=== PATIENT | female | born 1995 | race Hispanic/Latino ===

== ENCOUNTER 2020-12-30 09:56 | Inpatient (IN) | payer MEDICAID ==
[~2020-12-30 09:56] MED LIST: MIDAZOLAM 2 MG/2 ML INJ IV NR; SCOPOLAMINE TRANSDERMAL PATCH 72 HR TD NR
[2020-12-30] MEDS: LACTATED RINGERS 1,000 ML IV SCH ×2 (10:35→15:00)
[2020-12-30 10:47] LABS: Hematocrit 27.1 % (30.3-42.9); Mean Corpuscular HGB Conc 33 % (30-34); Mean Corpuscular Volume 93 fl (79-97); Platelet Count 272 K/mm3 (140-440); Red Blood Count 2.92 M/mm3 (3.65-5.03); Red Cell Distribution Width 13.6 % (13.2-15.2)
--- NOTE | 2020-12-30 10:49 | Anesthesia Consultation ---
Anesthesia Consult and Med Hx Date of service: 12/30/20 - Airway Anesthetic Teeth Evaluation: Good ROM Head & Neck: Adequate Mental/Hyoid Distance: Adequate Mallampati Class: Class II Intubation Access Assessment: Probably Good - Pulmonary Exam CTA: Yes - Cardiac Exam Cardiac Exam: RRR (tachycardic) - Pre-Operative Health Status ASA Pre-Surgery Classification: ASA3 Proposed Anesthetic Plan: General - Pulmonary Hx Smoking: No Hx Respiratory Symptoms: No Hx Sleep Apnea: No (RJ PRE SCREEN LOW RISK) - Cardiovascular System Hx Hypertension: Yes (gHTN; resolved since delivery) Hx Heart Attack/AMI: No Hx Cardia Arrhythmia: No - Central Nervous System CVA: No - Gastrointestinal Hx Gastroesophageal Reflux Disease: No - Endocrine Hx Renal Disease: Yes (cystinuria) Hx Liver Disease: No Hx Insulin Dependent Diabetes: No Hx Non-Insulin Dependent Diabetes: No Hx Thyroid Disease: No - Other Systems Hx Obesity: Yes (BMI 32) - Additional Comments Anesthesia Medical History Comments: Patient scheduled for cystoscopy 2/2 kidney stones today however she developed adominal pain and fever yesterday. Overnight, she was instructed to go to the ED for evaluation of symptoms however she elected not to go to the ED since surgery was already scheduled. Surgeon was notified and agreed to assess the patient in preop. On arrival, she is noted to be febrile and tachycardic, normotensive, complaining of pain. No respiratory symptoms and recent negative COVID test on 12/24/20. Will give IVF bolus and analgesic in preop and proceed with GA for planned procedure pending surgeon evaluation. Reports hx PONV w/ prior GA.
--- NOTE | 2020-12-30 10:49 | Anesthesia Day of Surgery ---
Anesthesia Day of Surgery - Day of Surgery Patient Examined: Yes Patient H&P Reviewed: Yes Patient is NPO: Yes
[2020-12-30] MEDS ORDERED: MORPHINE 2 MG/1 ML INJ IV PRN (11:00)
[2020-12-30] MEDS ORDERED: propofoL 200 MG/20 ML VIAL IV ONE ×3 (11:44→12:35)
[2020-12-30] MEDS ORDERED: fentaNYL 100 MCG/2 ML INJ ONE (11:44)
[2020-12-30] MEDS ORDERED: LIDOCAINE MPF (2%) 20 MG/1 ML VIAL 5 ML ONE (11:45)
--- NOTE | 2020-12-30 11:58 | Cat Scan Report ---
CT ABDOMEN AND PELVIS WITHOUT CONTRAST HISTORY: Flank pain. COMPARISON: None. TECHNIQUE: Helical CT images of the abdomen and pelvis were obtained without administration of intrav enous contrast. Sagittal and coronal reformatted images were reviewed. All CT scans at this location are performed using CT dose reduction for ALARA by means of automated exposure control. FINDINGS: Abdomen/pelvis: A 7.7 mm distal left ureteral stone is identified approximately 5 cm from the left U VJ. There is moderate upstream left hydronephrosis. A 5 mm calyceal stone is identified in the inferi or left kidney. There are or calyceal stones scattered in the right kidney measuring between 1-4 mm. No right ureteral stones or hydronephrosis. The uterus is enlarged measuring up to 18 cm in length on the sagittal images. This may represent a r ecent uterus. Please correlate with the patient's history. There is a large amount of hemo rrhagic products in the lower uterine segment and cervical canal measuring up to 6.7 x 7.5 x 7.0 cm. The endometrium appears slightly complex and thickened measuring 1.7 cm. The adnexal regions are unre markable. The bladder is partially empty but unremarkable. The liver, biliary system, pancreas, spleen, adrenal glands, aorta and bowel loops are unremarkable. Lungs/bones: No significant abnormality. IMPRESSION: Bilateral renal calyceal stones as described. 7.7 mm mid to distal left ureteral stone resulting in m oderate left hydronephrosis. Enlarged uterus. I suspect this patient is , correlate with history. Moderate to large hemo rrhagic products are identified in the lower uterine segment and cervical canal. Pelvic exam and cons ultation with BRAND REPRESENTATIVE should be considered. Signer Name: Flynn Cesar Jr, MD Signed: 12/30/2020 11:54 AM Workstation Name: [id number]
[2020-12-30] MEDS ORDERED: ceFAZolin/STERILE WATER 2 GM/20 ML SYRINGE IV NR (12:00)
[2020-12-30] MEDS ORDERED: dexAMETHasone 20 MG/5 ML VIAL ONE (12:29)
[2020-12-30] MEDS ORDERED: ONDANSETRON 4 MG/2 ML INJ ONE (12:29)
[2020-12-30] MEDS ORDERED: KETOROLAC 30 MG/1 ML INJ ONE (12:47)
--- NOTE | 2020-12-30 12:58 | Post Operative Note ---
Date of procedure: 12/30/20 Pre-op diagnosis: l ureteral stone post fever Post-op diagnosis: same Findings: large stone Procedure: cysto rpg L j stent Anesthesia: GETA Surgeon: VINOD GRIDER Estimated blood loss: none Pathology: list (urine LK) Specimen disposition: to lab Condition: stable Disposition: PACU
--- NOTE | 2020-12-30 13:00 | Discharge Summary ---
Short Stay Discharge Plan Activity: other (no straing ) Weight Bearing Status: Full Weight Bearing Diet: regular, low fat Durable Medical Equipment Needed Upon Discharge: other (no straining ) Follow up with: EUGENIO VALDIVIA [Other] - 7 Days VINOD GRIDER MD [Staff Physician] - 7 Days
[2020-12-30] MEDS ORDERED: LIDOCAINE-MPF (1%) 10 MG/1 ML VIAL 5 ML INFILTRATI ONE (13:10)
--- NOTE | 2020-12-30 13:15 | Fluoroscopy Report ---
FLUOROSCOPY RETROGRADE UROGRAPHY HISTORY: FINDINGS: Fluoroscopy was provided by radiology during retrograde urography by the urologist. The pepito ges demonstrate contrast injection into the left renal collecting system. A 7-8mm filling defect in t he mid to distal left ureter is identified consistent with a stone. Subsequent images demonstrate manda cement of a left ureteral stent which is in good position on the final image with decreased left hydr onephrosis. No images of the right renal collecting system are presented. IMPRESSION: Left ureteral stone. Left ureteral stent placement. Fluoroscopy time: 1 minute 6 seconds Fluoroscopic images: 4 Signer Name: Flynn Cesar Jr, MD Signed: 12/30/2020 1:11 PM Workstation Name: [id number]
--- NOTE | 2020-12-30 13:16 | Operative Report ---
PREOPERATIVE DIAGNOSES: Left hydronephrosis, left ureteral stone, . POSTOPERATIVE DIAGNOSES: Left hydronephrosis, left ureteral stone, with a uterine hemorrhage and severe obstruction, left ureteral stone. PROCEDURE: Cystoscopy, left retrograde, left J stent. SURGEON: Dr. Gonsalez. ANESTHESIA: General. FINDINGS: This is a woman who had severe pain and today developed a fever of over 102. She had a CT scan showed an 8 mm distal stone at the vessels and hydronephrosis. She also had uterine hemorrhage. She now presents for treatment. DESCRIPTION OF PROCEDURE: The patient was brought to the operating room and placed on the operating table. Following induction of anesthesia, placed in lithotomy position, prepped and draped in usual sterile fashion. Cystourethroscopy showed some inflammatory changes at the base of the bladder, likely from some manipulation and the catheter from her recent delivery. Retrograde showed severe obstruction, left distal ureter and eventually and we were able to get a wire by the stone. We collected the urine from the left renal pelvis for culture, which did not look that purulent, but just a little cloudy. We then placed a 7-Sami double J in the kidney and bladder and a Boone catheter. The patient tolerated the procedure well. I spoke to Dr. Avila who may admit her for 24 hours and the OB on-call to evaluate her. At this point, she will have to come back for a second stage ureteroscopy or lithotripsy. JOB# [id number] TREVOR/MAVERICK
[2020-12-30] MEDS ORDERED: WATER FOR IRRIG STERILE 2000 ML IR ONE (13:19)
[2020-12-30] MEDS ORDERED: IOHEXOL 300 MG/ML 50ML IV ONE (13:19)
--- NOTE | 2020-12-30 13:22 | Consultation ---
History of Present Illness Consult date: 12/30/20 History of present illness: Is a 25-year-old who is status post a vaginal delivery 5 days ago at another hospital. I was asked to consult on this patient for her temperature of 102. Patient had a stent placed for hydronephrosis by urology today. Patient denies any low midline abdominal pain. Patient also denies any breast pain. No vag d/c and no heavy VB noted. Medications and Allergies Allergies Allergy/AdvReac Type Severity Reaction Status Date / Time hydromorphone [From Dilaudid] Allergy Itching Verified 12/28/20 12:29 levofloxacin [From Levaquin] Allergy Itching Verified 12/28/20 12:29 Home Medications Medication Instructions Recorded Confirmed Last Taken Type Acetaminophen [Tylenol] 500 mg PO PRN PRN 12/28/20 12/30/20 12/29/20 20:00 History Docusate Sodium [Colace] 100 mg PO DAILY 12/28/20 12/30/20 12/29/20 09:00 History Ibuprofen [Motrin] 800 mg PO Q8HR PRN 12/28/20 12/30/20 12/27/20 12:00 History Pnv,Calcium 72/Iron,Carb/Folic 1 each PO DAILY 12/28/20 12/30/20 12/29/20 09:00 History [ Plus Iron Tablet] Hydrocodone-Acetamin 5-300 mg 5 mg PO Q6HR 12/30/20 12/30/20 12/30/20 04:30 History Active Meds: Active Medications Cefazolin Sodium (Cefazolin/Sterile Water 2 Gm/20 Ml Syringe) 2 gm IV PREOP NR Stop: 12/30/20 20:00 Ceftriaxone Sodium (Ceftriaxone 500 Mg Inj) 500 mg IV ONCE ONE; Protocol Stop: 12/30/20 13:11 Lactated Ringer's (Lactated Ringers) 1,000 mls @ 100 mls/hr IV DIRECT СВЕТЛАНА Stop: 12/30/20 23:59 Last Admin: 12/30/20 10:35 Dose: 100 mls/hr Documented by: Gentamicin Sulfate 80 mg/ (Sodium Chloride) 102 mls @ 200 mls/hr IV ONCE ONE; Protocol Stop: 12/30/20 14:00 Ceftriaxone Sodium 500 mg/ (Sodium Chloride) 50 mls @ 100 mls/hr IV ONCE СВЕТЛАНА Stop: 12/30/20 23:00 Midazolam HCl (Midazolam 2 Mg/2 Ml Inj) 2 mg IV PREOP NR Stop: 12/30/20 23:00 Last Admin: 12/30/20 12:19 Dose: 2 mg Documented by: Morphine Sulfate (Morphine 2 Mg/1 Ml Inj) 2 mg IV PRN PRN PRN Reason: Pain , Severe (7-10) Stop: 12/30/20 16:00 Last Admin: 12/30/20 10:51 Dose: 2 mg Documented by: Scopolamine (Scopolamine Transdermal Patch 72 Hr) 1 each TD PREOP NR Stop: 12/30/20 23:00 Last Admin: 12/30/20 10:30 Dose: 1 each Documented by: Review of Systems All systems: negative - Vital Signs Vital signs: Vital Signs Temp Pulse Resp BP Pulse Ox 100.0 F H 137 H 22 110/63 97 12/30/20 10:15 12/30/20 10:15 12/30/20 10:15 12/30/20 10:15 12/30/20 10:15 Temp Pulse Resp BP Pulse Ox 102.2 F H 129 H 22 123/78 96 12/30/20 11:45 12/30/20 11:45 12/30/20 11:45 12/30/20 11:45 12/30/20 11:45 - Physical Exam Breasts: Positive: normal (no erythema or tend. No evidence of mastitis or abscess) Abdomen: Positive: normal appearance, soft. Negative: tenderness (uterus firm, nontender.) Results Result Diagrams: 12/30/20 10:30 Abnormal lab results 12/30/20 Range/Units 10:30 WBC 22.2 H (4.5-11.0) K/mm3 RBC 2.92 L (3.65-5.03) M/mm3 Hgb 9.0 L (10.1-14.3) gm/dl Hct 27.1 L (30.3-42.9) % All other labs normal. Assessment and Plan - Patient Problems (1) Fever Current Visit: Yes Status: Acute Plan to address problem: Based on exam, do not suspect a DESKIDDING MACHINE OPERATOR origin to her fever. CT showed blood products in the uterus but that is a common finding 5 days after delivery. More importantly, her uterus in nontender. With any questions, feel free to call [employer] SERV[employer] DESK TECHNICIAN police communications operator.
[2020-12-30] MEDS ORDERED: GENTAMICIN 80 MG in SODIUM CHLORIDE 0.9% 100 ML IV ONE (13:30)
--- NOTE | 2020-12-30 13:57 | History and Physical Report ---
Medications and Allergies Allergies Allergy/AdvReac Type Severity Reaction Status Date / Time hydromorphone [From Dilaudid] Allergy Itching Verified 12/28/20 12:29 levofloxacin [From Levaquin] Allergy Itching Verified 12/28/20 12:29 Home Medications Medication Instructions Recorded Confirmed Last Taken Type Acetaminophen [Tylenol] 500 mg PO PRN PRN 12/28/20 12/30/20 12/29/20 20:00 History Docusate Sodium [Colace] 100 mg PO DAILY 12/28/20 12/30/20 12/29/20 09:00 History Ibuprofen [Motrin] 800 mg PO Q8HR PRN 12/28/20 12/30/20 12/27/20 12:00 History Pnv,Calcium 72/Iron,Carb/Folic 1 each PO DAILY 12/28/20 12/30/20 12/29/20 09:00 History [ Plus Iron Tablet] Hydrocodone-Acetamin 5-300 mg 5 mg PO Q6HR 12/30/20 12/30/20 12/30/20 04:30 History Active Meds: Active Medications Cefazolin Sodium (Cefazolin/Sterile Water 2 Gm/20 Ml Syringe) 2 gm IV PREOP NR Stop: 12/30/20 20:00 Lactated Ringer's (Lactated Ringers) 1,000 mls @ 100 mls/hr IV DIRECT СВЕТЛАНА Stop: 12/30/20 23:59 Last Admin: 12/30/20 10:35 Dose: 100 mls/hr Documented by: Ceftriaxone Sodium 500 mg/ (Sodium Chloride) 50 mls @ 100 mls/hr IV ONCE СВЕТЛАНА Stop: 12/30/20 23:00 Gentamicin Sulfate/Sodium Chloride (Gentamicin/Ns 80 Mg/100 Ml) 100 mls @ 196.078 mls/hr IV ONCE ONE; Protocol Stop: 12/30/20 15:00 Midazolam HCl (Midazolam 2 Mg/2 Ml Inj) 2 mg IV PREOP NR Stop: 12/30/20 23:00 Last Admin: 12/30/20 12:19 Dose: 2 mg Documented by: Morphine Sulfate (Morphine 2 Mg/1 Ml Inj) 2 mg IV PRN PRN PRN Reason: Pain , Severe (7-10) Stop: 12/30/20 16:00 Last Admin: 12/30/20 10:51 Dose: 2 mg Documented by: Scopolamine (Scopolamine Transdermal Patch 72 Hr) 1 each TD PREOP NR Stop: 12/30/20 23:00 Last Admin: 12/30/20 10:30 Dose: 1 each Documented by: Exam - Constitutional Vitals: Temp Pulse Resp BP Pulse Ox 99.9 F H 120 H 21 117/62 99 12/30/20 13:00 12/30/20 13:45 12/30/20 13:45 12/30/20 13:45 12/30/20 13:45 Results - Labs CBC & Chem 7: 12/30/20 10:30 Labs: Abnormal lab results 12/30/20 Range/Units 10:30 WBC 22.2 H (4.5-11.0) K/mm3 RBC 2.92 L (3.65-5.03) M/mm3 Hgb 9.0 L (10.1-14.3) gm/dl Hct 27.1 L (30.3-42.9) %
[2020-12-30] MEDS ORDERED: HYDROmorphone 1 MG/1 ML INJ IV PRN (14:22)
[2020-12-30] MEDS ORDERED: SODIUM CHLORIDE 0.9% 1000 ML IV SOLN IV ONE (14:22)
[2020-12-30] MEDS ORDERED: ACETAMINOPHEN 325 MG TAB PO PRN (14:22)
[2020-12-30] MEDS ORDERED: ONDANSETRON 4 MG/2 ML INJ IV PRN (14:22)
[2020-12-30] MEDS ORDERED: NON-FORMULARY EACH (Acetaminophen [Tylenol] 325 MG Capsule) PO PRN (14:25)
--- NOTE | 2020-12-30 14:26 | History and Physical Report ---
History of Present Illness Chief complaint: My side hurts History of present illness: 25 YO Female with HTN, Obesity presents to preop area for surgical intervention. Patient seen and evaluated in preop. Patient reports "my side is hurting". Patient states that she has experienced bilateral flank plain over the past several days with persistently worsening symptoms over the past 2 days. Patient found to have fever to 102.2 F, a heart rate of 129 and a blood pressure of 89/49. Patient underwent preoperative CT scan of the abdomen and pelvis which revealed a left obstructing ureteral stone complicated by hydronephrosis. Patient taken to the operating room for surgical intervention. Patient initiated on sepsis protocol and admitted to surgical floor postoperatively. Patient denies fever, chills, chest pain, palpitation, productive cough, skin rash, recent ill contacts, ingestion of food/water from new or different sources, or known exposure to COVID-19. No prior admission for review. No medication listed at time of admission for reconciliation. Past History Past Medical History: other (See HPI) Past Surgical History: Other (Cystoscopy with stent stent placement) Social history: , lives with family. denies: smoking, alcohol abuse, prescription drug abuse Family history: hypertension Medications and Allergies Allergies Allergy/AdvReac Type Severity Reaction Status Date / Time hydromorphone [From Dilaudid] Allergy Itching Verified 12/28/20 12:29 levofloxacin [From Levaquin] Allergy Itching Verified 12/28/20 12:29 Home Medications Medication Instructions Recorded Confirmed Last Taken Type Acetaminophen [Tylenol] 500 mg PO PRN PRN 12/28/20 12/30/20 12/29/20 20:00 History Docusate Sodium [Colace] 100 mg PO DAILY 12/28/20 12/30/20 12/29/20 09:00 History Ibuprofen [Motrin] 800 mg PO Q8HR PRN 12/28/20 12/30/20 12/27/20 12:00 History Pnv,Calcium 72/Iron,Carb/Folic 1 each PO DAILY 12/28/20 12/30/20 12/29/20 09:00 History [ Plus Iron Tablet] Hydrocodone-Acetamin 5-300 mg 5 mg PO Q6HR 12/30/20 12/30/20 12/30/20 04:30 History Active Meds: Active Medications Acetaminophen (Acetaminophen 325 Mg Tab) 650 mg PO Q4H PRN PRN Reason: Pain MILD(1-3)/Fever >100.5/BAROLW Acetaminophen (Acetaminophen 325 Mg Tab) 650 mg PO Q6H PRN PRN Reason: Pain, Mild (1-3) Cefazolin Sodium (Cefazolin/Sterile Water 2 Gm/20 Ml Syringe) 2 gm IV PREOP NR Stop: 12/30/20 20:00 Docusate Sodium (Docusate Sodium 100 Mg Cap) 100 mg PO DAILY СВЕТЛАНА Hydromorphone HCl (Hydromorphone 1 Mg/1 Ml Inj) 0.25 mg IV Q4H PRN PRN Reason: Pain, Moderate (4-6) Lactated Ringer's (Lactated Ringers) 1,000 mls @ 100 mls/hr IV DIRECT СВЕТЛАНА Stop: 12/30/20 23:59 Last Admin: 12/30/20 10:35 Dose: 100 mls/hr Documented by: Ceftriaxone Sodium 500 mg/ (Sodium Chloride) 50 mls @ 100 mls/hr IV ONCE СВЕТЛАНА Stop: 12/30/20 23:00 Last Admin: 12/30/20 14:04 Dose: 100 mls/hr Documented by: Gentamicin Sulfate/Sodium Chloride (Gentamicin/Ns 80 Mg/100 Ml) 100 mls @ 19 6.078 mls/hr IV ONCE ONE; Protocol Stop: 12/30/20 15:00 Cefepime HCl (Cefepime/Ns 2 Gm/100 Ml) 2 gm in 100 mls @ 200 mls/hr IV Q12H СВЕТЛАНА; Protocol Midazolam HCl (Midazolam 2 Mg/2 Ml Inj) 2 mg IV PREOP NR Stop: 12/30/20 23:00 Last Admin: 12/30/20 12:19 Dose: 2 mg Documented by: Miscellaneous Medication (Acetaminophen [Tylenol]) 500 mg PO PRN PRN PRN Reason: Pain, Mild (1-3) Miscellaneous Medication (Pnv,Calcium 72/Iron,Carb/Folic [ Plus Iron Tablet]) 1 each PO DAILY СВТЕЛАНА Morphine Sulfate (Morphine 2 Mg/1 Ml Inj) 2 mg IV PRN PRN PRN Reason: Pain , Severe (7-10) Stop: 12/30/20 16:00 Last Admin: 12/30/20 10:51 Dose: 2 mg Documented by: Ondansetron HCl (Ondansetron 4 Mg/2 Ml Inj) 4 mg IV Q8H PRN PRN Reason: Nausea And Vomiting Scopolamine (Scopolamine Transdermal Patch 72 Hr) 1 each TD PREOP NR Stop: 12/30/20 23:00 Last Admin: 12/30/20 10:30 Dose: 1 each Documented by: Sodium Chloride (Sodium Chloride 0.9% 10 Ml Flush Syringe) 10 ml IV BID СВЕТЛАНА Sodium Chloride (Sodium Chloride 0.9% 10 Ml Flush Syringe) 10 ml IV PRN PRN PRN Reason: LINE FLUSH Sodium Chloride (Sodium Chloride 0.9% 1000 Ml Iv Soln) 2,590 ml 30 ml/kg (2590 ml) IV ONCE ONE Stop: 12/30/20 14:23 Review of Systems Constitutional: fever, no weight loss, no weight gain, no sweats Ears, nose, mouth and throat: no ear pain, no ear discharge, no decreased hearing, no nasal discharge Breasts: no change in shape, no swelling, no mass Cardiovascular: no chest pain, no palpitations, no rapid/irregular heart beat, no edema, no lightheadedness Respiratory: no shortness of breath Gastrointestinal: nausea, no vomiting, no diarrhea, no change in bowel habits Genitourinary Female: flank pain, no urgency, no post void dribbling, no urge incontinence, no mixed incontinence, no difficulty voiding Rectal: no pain, no incontinence, no bleeding Musculoskeletal: no shooting arm pain, no low back pain, no shooting leg pain Integumentary: no rash, no redness, no sores, no jaundice Neurological: no transient paralysis, no weakness, no numbness, no tingling Psychiatric: no anxiety, no sleep disturbances, no change in appetite, no suicidal ideation, no hallucinations Endocrine: no cold intolerance, no excessive thirst, no nocturia, no weight change Hematologic/Lymphatic: no easy bleeding Allergic/Immunologic: no anaphylaxis, no angioedema Exam - Constitutional Vitals: Temp Pulse Resp BP Pulse Ox 99.7 F H 119 H 20 119/68 99 12/30/20 14:00 12/30/20 14:00 12/30/20 14:00 12/30/20 14:00 12/30/20 14:00 General appearance: Present: mild distress - EENT Eyes: Present: PERRL ENT: hearing intact, clear oral mucosa - Neck Neck: Present: supple, normal ROM - Respiratory Respiratory effort: normal Respiratory: bilateral: CTA - Cardiovascular Rhythm: other (Tachycardia) Heart Sounds: Present: S1 & S2. Absent: rub, click - Extremities Extremities: pulses symmetrical, No edema Peripheral Pulses: abnormal (Capillary refill greater than 3.5 seconds) - Abdominal General gastrointestinal: Present: soft, non-tender, non-distended, normal bowel sounds Female genitourinary: Present: normal - Integumentary Integumentary: Present: clear, warm, dry - Musculoskeletal Musculoskeletal: gait normal, strength equal bilaterally - Psychiatric Psychiatric: appropriate mood/affect, intact judgment & insight - Neurologic Neurologic: CNII-XII intact, moves all extremities Results - Labs CBC & Chem 7: 12/30/20 10:30 Labs: Abnormal lab results 12/30/20 Range/Units 10:30 WBC 22.2 H (4.5-11.0) K/mm3 RBC 2.92 L (3.65-5.03) M/mm3 Hgb 9.0 L (10.1-14.3) gm/dl Hct 27.1 L (30.3-42.9) % Assessment and Plan - Patient Problems (1) Sepsis Current Visit: Yes Status: Acute Plan to address problem: Sepsis protocol: CBC, CMP, urinalysis, CT scan abdomen and pelvis, IV fluid resuscitation therapy, IV antibiotic therapy, monitor fluid balance, monitor urine output every shift, maintain mean arterial pressure greater than or equal to 65. Blood culture. (2) Obesity Current Visit: Yes Status: Acute Plan to address problem: Balanced diet, increase physical activity at discharge, (3) Obstructive uropathy Current Visit: Yes Status: Acute Plan to address problem: Nephrology team consulted. Patient is status post cystoscopy with left ureteral stent placement. (4) DVT prophylaxis Current Visit: Yes Status: Acute Plan to address problem: SCD to bilateral lower extremities while in bed, patient is ambulatory.
[2020-12-30] MEDS ORDERED: GENTAMICIN/NS 80 MG/100 ML 100 ML IV ONE (14:30)
--- NOTE | 2020-12-30 15:45 | Post Anesthesia Evaluation ---
- Post Anesthesia Evaluation Patient Participated: Yes Airway Patent: Yes Stable Respiratory Function: Yes Nausea/Vomiting: No Temp > 96.8F: Yes Pain Manageable: Yes Adequeate Hydration: Yes Anesthesia Complications: No Other Comments: Tachyardia significantly improved with IVF bolus. Remains normotensive. Given concern for sepsis presumably 2/2 renal stone, patient will be admitted for further management.
[2020-12-30] MEDS ORDERED: SODIUM CHLORIDE 0.9% 1000 ML 1,000 ML IV SCH ×2 (16:00)
[2020-12-30] MEDS: ACETAMINOPHEN 325 MG TAB PO PRN (21:14)
[2020-12-30] MEDS: CEFEPIME/NS 2 GM/100 ML 2 GM/100 ML BAG IV SCH (21:21)
[2020-12-31] MEDS ORDERED: MORPHINE 2 MG/1 ML INJ IM ONE (06:25)
[2020-12-31] MEDS ORDERED: traMADol 50 MG TAB PO PRN (06:28)
[2020-12-31] MEDS: DOCUSATE SODIUM 100 MG CAP PO SCH (09:50)
[2020-12-31] MEDS: PRENATAL VIT27-FE FUMARATE-FOLIC ACID VIT TAB PO SCH (09:51)
[2020-12-31] MEDS: CEFEPIME/NS 2 GM/100 ML 2 GM/100 ML BAG IV SCH ×2 (09:51→21:02)
[2020-12-31] MEDS ORDERED: [UNRECOGNIZED DRUG - OTHER] PO SCH (10:00)
[2020-12-31] MEDS ORDERED: FOLIC PO SCH (10:00)
[2020-12-31] MEDS ORDERED: PNV CALCIUM PO SCH (10:00)
[2020-12-31] MEDS ORDERED: IRON CARB PO SCH (10:00)
[2020-12-31] MEDS ORDERED: TABL PO SCH (10:00)
[2020-12-31 11:05] LABS: Hematocrit 24.7 % (30.3-42.9); Hemoglobin 8.1 gm/dl (10.1-14.3); Mean Corpuscular HGB Conc 33 % (30-34); Mean Corpuscular Volume 92 fl (79-97); Platelet Count 235 K/mm3 (140-440); Red Blood Count 2.68 M/mm3 (3.65-5.03); Red Cell Distribution Width 13.8 % (13.2-15.2)
[2020-12-31 11:18] LABS: BUN/Creatinine Ratio 12; Blood Urea Nitrogen 11 mg/dL (7-17); Calcium 7.9 mg/dL (8.4-10.2); Hemolysis Index 1
--- NOTE | 2020-12-31 12:55 | Progress Note ---
Assessment and Plan (1) Sepsis with UTI Current Visit: Yes Status: Acute Plan to address problem: Sepsis protocol: CBC, CMP, urinalysis, CT scan abdomen and pelvis, IV fluid resuscitation therapy, IV antibiotic therapy, monitor fluid balance, monitor urine output every shift, maintain mean arterial pressure greater than or equal to 65. will follow blood cx (2) Obesity Current Visit: Yes Status: Acute Plan to address problem: recommended Balanced diet, increase physical activity at discharge when clinically more stable, (3) Obstructive uropathy Current Visit: Yes Status: Acute Plan to address problem: Nephrology team consulted. Patient is status post cystoscopy with left ureteral stent placement. (4) DVT prophylaxis Current Visit: Yes Status: Acute Plan to address problem: SCD to bilateral lower extremities while in bed, patient is ambulatory. 12/31: cont iv abx, afebrile o/n. urine cx pending. lactic acid normal today. WBC at 20K. cont supportive care with medical management, follow urine culture. If clinically stable and white count trends down possible DC tomorrow Subjective Date of service: 12/31/20 Interval history: Patient seen and examined vitals noted discussed with spouse by phone - all questions answered patient c/o mild left flank pain tolerating diet, states feels much better today Objective - Constitutional Vitals: Vital Signs - 12hr 12/31/20 12/31/20 12/31/20 04:00 05:36 06:48 Temperature 98.6 F 99.6 F Pulse Rate 126 H 123 H Respiratory 20 18 18 Rate Blood Pressure 113/64 121/65 Blood Pressure [Left] O2 Sat by Pulse 90 91 Oximetry 12/31/20 12/31/20 07:56 09:46 Temperature 99.2 F Pulse Rate 122 H Respiratory 18 Rate Blood Pressure Blood Pressure 121/65 [Left] O2 Sat by Pulse 95 93 Oximetry General appearance: Present: no acute distress, well-nourished - EENT Eyes: PERRL, EOM intact ENT: hearing intact, clear oral mucosa Ears: bilateral: normal - Neck Neck: supple, normal ROM - Respiratory Respiratory effort: normal Respiratory: bilateral: CTA - Cardiovascular Rhythm: regular Heart Sounds: Present: S1 & S2. Absent: gallop, rub Extremities: pulses intact, No edema, normal color, Full ROM - Gastrointestinal General gastrointestinal: Present: soft, non-tender, non-distended, normal bowel sounds - Integumentary Integumentary: clear, warm, dry - Musculoskeletal Musculoskeletal: 1, strength equal bilaterally - Neurologic Neurologic: moves all extremities - Psychiatric Psychiatric: memory intact, appropriate mood/affect, intact judgment & insight - Labs CBC & Chem 7: 01/01/21 13:36 01/01/21 13:36 Labs: Abnormal lab results 12/30/20 12/30/20 12/31/20 Range/Units 14:52 17:54 10:53 WBC 20.2 H (4.5-11.0) K/mm3 RBC 2.68 L (3.65-5.03) M/mm3 Hgb 8.1 L (10.1-14.3) gm/dl Hct 24.7 L (30.3-42.9) % Chloride (98-107) mmol/L Glucose (65-100) mg/dL Lactic Acid 2.20 H* 2.10 H* (0.7-2.0) mmol/L Calcium (8.4-10.2) mg/dL 12/31/20 Range/Units 10:53 WBC (4.5-11.0) K/mm3 RBC (3.65-5.03) M/mm3 Hgb (10.1-14.3) gm/dl Hct (30.3-42.9) % Chloride 110.1 H (98-107) mmol/L Glucose 111 H (65-100) mg/dL Lactic Acid (0.7-2.0) mmol/L Calcium 7.9 L (8.4-10.2) mg/dL
[2020-12-31] MEDS: ACETAMINOPHEN 325 MG TAB PO PRN ×2 (17:03→23:48)
[2021-01-01] MEDS: ACETAMINOPHEN 325 MG TAB PO PRN ×2 (07:52→13:51)
[2021-01-01] MEDS: PRENATAL VIT27-FE FUMARATE-FOLIC ACID VIT TAB PO SCH ×2 (08:21→10:52)
[2021-01-01] MEDS: DOCUSATE SODIUM 100 MG CAP PO SCH ×2 (08:21→10:54)
[2021-01-01] MEDS ORDERED: SODIUM CHLORIDE 0.9% 1000 ML 1,000 ML IV SCH (10:30)
[2021-01-01] MEDS: CEFEPIME/NS 2 GM/100 ML 2 GM/100 ML BAG IV SCH (10:52)
--- NOTE | 2021-01-01 12:44 | Discharge Summary ---
Providers - Providers Date of Admission: 12/30/20 14:22 Date of discharge: 01/01/21 Attending physician: DARVIN CALDERON Hospitalization Hospital course: This is a 25 y/o white female who is status post a vaginal delivery 5 days ago at another hospital developed bilateral flank plain over the past several days with persistently worsening symptoms over the past 2 days. Patient found to have fever to 102.2 F, a heart rate of 129 and a blood pressure of 89/49. Patient underwent preoperative CT scan of the abdomen and pelvis which revealed a left obstructing ureteral stone complicated by hydronephrosis. Patient taken to the operating room for surgical intervention, s/p left ureteral stent placement. Patient initiated on sepsis protocol, iv abx and admitted to surgical floor postoperatively. Her urine Cx grew gm negative rods. Discussed with Urologist and cleared her for discharge. Patient was then recommended to followup with urologist on next week Monday at 10am. Patient verbalized understanding and was discharge home in stable condition. Discharge diagnosis: Sepsis with UTI Obstructive uropathy with hydronephrosis Nephrolethiais Obesity Anemia, Normocytic Disposition: DC-01 TO HOME OR SELFCARE Time spent for discharge: 34 Minutes Core Measure Documentation - Palliative Care Palliative Care/ Comfort Measures: Not Applicable - Core Measures Any of the following diagnoses?: none Exam - Physical Exam Narrative exam: General appearance: Present: no acute distress, well-nourished - EENT Eyes: PERRL, EOM intact ENT: hearing intact, clear oral mucosa Ears: bilateral: normal - Neck Neck: supple, normal ROM - Respiratory Respiratory effort: normal Respiratory: bilateral: CTA - Cardiovascular Rhythm: regular Heart Sounds: Present: S1 & S2. Absent: gallop, rub Extremities: pulses intact, No edema, normal color, Full ROM - Gastrointestinal General gastrointestinal: Present: soft, non-tender, non-distended, normal bowel sounds - Integumentary Integumentary: clear, warm, dry - Musculoskeletal Musculoskeletal: 1, strength equal bilaterally - Neurologic Neurologic: moves all extremities - Psychiatric Psychiatric: memory intact, appropriate mood/affect, intact judgment & insight - Constitutional Vitals: Temp Pulse Resp BP Pulse Ox 98.1 F 121 H 18 121/76 91 01/01/21 08:59 01/01/21 07:44 01/01/21 07:44 01/01/21 07:44 01/01/21 07:44 Plan Activity: advance as tolerated Weight Bearing Status: Non-Weight Bearing Diet: low fat Additional Instructions: Follow-up with Dr. Gonsalez on Monday at 10 AM. Please follow-up your pending urine culture result with Dr. Gonsalez Follow up with: EUGENIO VALDIVIA [Other] - 7 Days VINOD GONSALEZ MD [Staff Physician] - 7 Days Prescriptions: cefUROXime [Ceftin] 250 mg PO Q12H #10 tablet
--- NOTE | 2021-01-01 12:54 | Event Note ---
Date: 01/01/21 PT WILL F/U WITH DR. Perdomo
[2021-01-01 13:36] VITALS: BP 134/92
[2021-01-01 13:46] LABS: Hematocrit 26.7 % (30.3-42.9); Hemoglobin 8.9 gm/dl (10.1-14.3); Mean Corpuscular HGB Conc 34 % (30-34); Mean Corpuscular Volume 92 fl (79-97); Platelet Count 236 K/mm3 (140-440); Red Blood Count 2.91 M/mm3 (3.65-5.03); Red Cell Distribution Width 13.5 % (13.2-15.2)
[2021-01-01 14:00] LABS: BUN/Creatinine Ratio 14; Blood Urea Nitrogen 11 mg/dL (7-17); Hemolysis Index 0
== END 2021-01-01 15:13 | disposition home or self-care (01) | DRG 776 ==
LOC: OR 09:56 → 3A 14:22 → 3B 16:26
PROVIDERS: ADMIT Internal Medicine; ATTEND Internal Medicine
PROC: 0T778DZ Dilation of Left Ureter with Intraluminal Device, Via Natural or Artificial Opening Endoscopic (ICD-10-PCS; principal; 2020-12-30)
PROC: BT1F1ZZ Fluoroscopy of Left Kidney, Ureter and Bladder using Low Osmolar Contrast (ICD-10-PCS; 2020-12-30)
DX: O86.20 Urinary tract infection following delivery, unspecified (principal); O99.893 Other specified diseases and conditions complicating puerperium; N13.2 Hydronephrosis with renal and ureteral calculous obstruction; O13.5 Gestational [pregnancy-induced] hypertension without significant proteinuria, complicating the puerperium; O99.215 Obesity complicating the puerperium; E66.9 Obesity, unspecified; O90.81 Anemia of the puerperium; D64.9 Anemia, unspecified; Z88.8 Allergy status to other drugs, medicaments and biological substances; B96.20 Unspecified Escherichia coli [E. coli] as the cause of diseases classified elsewhere
CPT/HCPCS: 36415; 74176; 74420; 80048; 82140; 85027; 87076; 87086; 87186; 94760; G0378; A4217; C1726; C1758; C1769; C2617; J0690; J0692; J0696; J1100; J1580; J1885; J2250; J2270; J2405; J2704; J3010; J7030; J7120; Q9967

== ENCOUNTER 2021-01-18 07:39 | Day surgery (SDC) | payer MEDICAID ==
[~2021-01-18 07:39] MED LIST changes: -MIDAZOLAM 2 MG/2 ML INJ IV NR; -SCOPOLAMINE TRANSDERMAL PATCH 72 HR TD NR; +ePHEDrine SULFATE 50 MG/1 ML INJ ONE
[2021-01-18] MEDS ORDERED: fentaNYL 100 MCG/2 ML INJ ONE (07:40)
[2021-01-18] MEDS ORDERED: SUCCINYLCHOLINE CHLORIDE 200 MG/10 ML INJ MDV ONE (07:40)
[2021-01-18] MEDS ORDERED: ONDANSETRON 4 MG/2 ML INJ ONE (07:40)
[2021-01-18] MEDS ORDERED: GLYCOPYRROLATE 0.4 MG/2 ML INJ ONE (07:40)
[2021-01-18] MEDS ORDERED: LIDOCAINE MPF (2%) 20 MG/1 ML VIAL 5 ML ONE (07:40)
[2021-01-18] MEDS ORDERED: PHENYLEPHRINE/NS 1,000 MCG/10 ML SYRINGE (OR USE) IV ONE (07:40)
[2021-01-18] MEDS ORDERED: dexAMETHasone 20 MG/5 ML VIAL ONE (07:40)
[2021-01-18] MEDS ORDERED: propofoL 200 MG/20 ML VIAL IV ONE (07:41)
[2021-01-18] MEDS ORDERED: LACTATED RINGERS 1,000 ML IV SCH (08:00)
--- NOTE | 2021-01-18 08:06 | Anesthesia Day of Surgery ---
Anesthesia Day of Surgery - Day of Surgery Patient Examined: Yes Patient H&P Reviewed: Yes Patient is NPO: Yes
--- NOTE | 2021-01-18 08:10 | Anesthesia Consultation ---
Anesthesia Consult and Med Hx Date of service: 01/18/21 - Airway Anesthetic Teeth Evaluation: Good ROM Head & Neck: Adequate Mental/Hyoid Distance: Adequate Mallampati Class: Class II Intubation Access Assessment: Good - Cardiac Exam Anesthetic Concerns: PONV - Pre-Operative Health Status ASA Pre-Surgery Classification: ASA2 Proposed Anesthetic Plan: General - Pulmonary Hx Smoking: No Hx Respiratory Symptoms: No Hx Sleep Apnea: No (RJ PRE SCREEN NEGATIVE) - Cardiovascular System Hx Hypertension: Yes (gHTN; resolved since delivery) Hx Heart Attack/AMI: No Hx Cardia Arrhythmia: No - Central Nervous System CVA: No Hx Psychiatric Problems: No - Gastrointestinal Hx Gastroesophageal Reflux Disease: No - Endocrine Hx Renal Disease: Yes (cystinuria) Hx Liver Disease: No Hx Insulin Dependent Diabetes: No Hx Non-Insulin Dependent Diabetes: No Hx Thyroid Disease: No - Hematic Hx Anemia: Yes (STILL ON IRON) - Other Systems Hx Cancer: No Hx Obesity: Yes (BMI 32) - Additional Comments Anesthesia Medical History Comments: Was here [id number]. Had baby and is
[2021-01-18] MEDS ORDERED: ONDANSETRON 4 MG/2 ML INJ IV PRN (08:30)
[2021-01-18] MEDS ORDERED: HYDROmorphone 1 MG/1 ML INJ IV PRN ×2 (08:30)
[2021-01-18] MEDS ORDERED: MIDAZOLAM 2 MG/2 ML INJ IV NR (09:00)
[2021-01-18] MEDS ORDERED: ceFAZolin/STERILE WATER 2 GM/20 ML SYRINGE IV NR (09:00)
[2021-01-18] MEDS ORDERED: IOHEXOL 300 MG/ML 50ML IV ONE (09:35)
--- NOTE | 2021-01-18 10:29 | Operative Report ---
PREOPERATIVE DIAGNOSES: Left distal ureteral stone, previous stent placement for sepsis and retained placenta and hemorrhage. POSTOPERATIVE DIAGNOSES: Left distal ureteral stone, previous stent placement for sepsis and retained placenta and hemorrhage. PROCEDURE: Cystoscopy, left ureteroscopy, laser of very large stone with extraction of multiple fragments. SURGEON: Dr. Gonsalez. ANESTHESIA: General. FINDINGS: This is a woman who presented with vaginal bleeding and severe pain. After delivery, she had a distal 7 mm stone. She refused previous stenting during . She was brought to the OR. She had a white count with a stent was placed and she continues to bleed. She needed a D and C for retained placenta. At this point, she now presents for second stage ureteroscopy. DESCRIPTION OF PROCEDURE: The patient was brought to the operating room and placed on the operating table. Following induction of anesthesia, placed in lithotomy position, prepped and draped in usual sterile fashion. The stent was uncoiled over a wire and ureteroscopy showed the stone. There was moderate left hydronephrosis. The stone was lasered into about 6 pieces and they were extracted and given to the patient. The patient tolerated the procedure well. No significant complications. We left the string. She was brought to recovery in stable condition. JOB# [id number] TREVOR/MAVERICK
--- NOTE | 2021-01-18 10:43 | Fluoroscopy Report ---
FLUOROSCOPY RETROGRADE UROGRAPHY HISTORY: FINDINGS: 48 seconds of fluoroscopy time was provided by radiology during left ureteral stone removal and left ureteral stent placement. 5 fluoroscopic images are presented. Please correlate with the pr ocedural report as needed. IMPRESSION: Left ureteral stone removal. Left ureteral stent placement. Signer Name: Flynn Cesar Jr, MD Signed: 01/18/2021 10:39 AM Workstation Name: [id number]
[2021-01-18] MEDS ORDERED: fentaNYL 100 MCG/2 ML INJ IV NR (11:08)
[2021-01-18 12:04] VITALS: BP 126/57
--- NOTE | 2021-01-18 12:22 | Post Operative Note ---
Date of procedure: 01/18/21 Pre-op diagnosis: left ureteral stone Post-op diagnosis: same Findings: l stone Procedure: cysto ureteroscopy stent laser Anesthesia: GETA Surgeon: VINOD GRIDER Estimated blood loss: none Pathology: list (stones) Specimen disposition: to lab Condition: stable Disposition: PACU
--- NOTE | 2021-01-18 12:24 | Discharge Summary ---
Short Stay Discharge Plan Activity: other (no straining ) Weight Bearing Status: Full Weight Bearing Diet: regular Special Instructions: other (inc fluids ) Follow up with: EUGENIO VALDIVIA [Other] - 7 Days VINOD GRIDER MD [Staff Physician] - 7 Days Forms: Outpatient Surgery DC Inst.
--- NOTE | 2021-01-18 12:53 | Post Anesthesia Evaluation ---
- Post Anesthesia Evaluation Patient Participated: Yes Airway Patent: Yes Stable Respiratory Function: Yes Nausea/Vomiting: No Temp > 96.8F: Yes Pain Manageable: Yes Adequeate Hydration: Yes Anesthesia Complications: No Block Receding Appropriately: Not Applicable Patient on Ventilator: No
== END 2021-01-18 07:40 | disposition home or self-care (01) ==
LOC: OR 07:39
PROVIDERS: ATTEND Urology
DX: N13.2 Hydronephrosis with renal and ureteral calculous obstruction (principal); E66.9 Obesity, unspecified; I10 Essential (primary) hypertension; D64.9 Anemia, unspecified; Z98.890 Other specified postprocedural states; Z88.8 Allergy status to other drugs, medicaments and biological substances; Z87.442 Personal history of urinary calculi; Z79.899 Other long term (current) drug therapy; Z68.32 Body mass index [BMI] 32.0-32.9, adult
CPT/HCPCS: 52356; 74420; 81025; C1726; C1769; C2617; J0330; J0690; J1100; J2250; J2370; J2405; J2704; J3010; J7120; Q9967

== ENCOUNTER 2021-03-24 12:50 | Inpatient (IN) | payer MEDICAID, OTHER ==
[2021-03-26 00:01] VITALS: BP 105/55
== END 2021-03-26 11:55 | disposition home or self-care (01) | DRG 854 ==
LOC: ED 12:50 → OBSVTOIN 16:40 → 3B-SURG 16:40
PROVIDERS: ADMIT Urology; ATTEND Urology
PROC: 0TJB8ZZ Inspection of Bladder, Via Natural or Artificial Opening Endoscopic (ICD-10-PCS; principal; 2021-03-24)
PROC: 0T7B8DZ Dilation of Bladder with Intraluminal Device, Via Natural or Artificial Opening Endoscopic (ICD-10-PCS; 2021-03-24)
DX: A41.9 Sepsis, unspecified organism (principal); N17.9 Acute kidney failure, unspecified; N13.6 Pyonephrosis; N20.0 Calculus of kidney; I10 Essential (primary) hypertension; D64.9 Anemia, unspecified; E66.9 Obesity, unspecified; Z79.899 Other long term (current) drug therapy; Z79.891 Long term (current) use of opiate analgesic; Z79.01 Long term (current) use of anticoagulants; Z88.5 Allergy status to narcotic agent; Z88.1 Allergy status to other antibiotic agents; Z68.32 Body mass index [BMI] 32.0-32.9, adult
CPT/HCPCS: 36415; 74420; 80048; 80053; 81001; 81025; 82140; 83690; 84702; 85007; 85025; 86850; 86900; 86901; 87086; G0378; A4217; C1726; C1758; C1769; C2617; J0696; J1170; J1580; J2250; J2370; J2405; J2704; J3010; J7030; J7040; J7042; Q9967

== ENCOUNTER 2021-04-19 08:24 | Day surgery (SDC) | payer MEDICAID ==
[~2021-04-19 08:24] MED LIST changes: +LACTATED RINGERS 1,000 ML IV SCH; +MIDAZOLAM 2 MG/2 ML INJ IV NR; +SCOPOLAMINE TRANSDERMAL PATCH 72 HR TD NR; -ePHEDrine SULFATE 50 MG/1 ML INJ ONE
[2021-04-19] MEDS ORDERED: fentaNYL 100 MCG/2 ML INJ IV PRN (09:36)
[2021-04-19] MEDS ORDERED: ONDANSETRON 4 MG/2 ML INJ IV PRN (09:36)
--- NOTE | 2021-04-19 09:36 | Anesthesia Day of Surgery ---
Anesthesia Day of Surgery - Day of Surgery Patient Examined: Yes Patient H&P Reviewed: Yes Patient is NPO: Yes
--- NOTE | 2021-04-19 09:36 | Anesthesia Consultation ---
Anesthesia Consult and Med Hx Date of service: 04/19/21 - Airway Anesthetic Teeth Evaluation: Good ROM Head & Neck: Adequate Mental/Hyoid Distance: Adequate Mallampati Class: Class II Intubation Access Assessment: Probably Good (previouos LMA 4) - Pre-Operative Health Status ASA Pre-Surgery Classification: ASA2 Proposed Anesthetic Plan: General - Pulmonary Hx Smoking: No Hx Respiratory Symptoms: No - Cardiovascular System Hx Hypertension: No - Central Nervous System CVA: No - Endocrine Hx Renal Disease: Yes (cystinuria) Hx Liver Disease: No Hx Insulin Dependent Diabetes: No Hx Non-Insulin Dependent Diabetes: No Hx Thyroid Disease: No - Additional Comments Anesthesia Medical History Comments: Hx PONV w/ previous anesthesia. Most recent anesthetic 03/2021 GA w/ scop patch had no PONV.
[2021-04-19] MEDS ORDERED: LIDOCAINE MPF (2%) 20 MG/1 ML VIAL 5 ML ONE (09:54)
[2021-04-19] MEDS ORDERED: fentaNYL 100 MCG/2 ML INJ ONE (09:55)
[2021-04-19] MEDS ORDERED: propofoL 200 MG/20 ML VIAL IV ONE ×2 (09:55→10:12)
[2021-04-19] MEDS ORDERED: ceFAZolin/STERILE WATER 2 GM/20 ML SYRINGE IV NR (10:00)
[2021-04-19] MEDS ORDERED: HYDROcodone/ACETAMINOPHEN 5-325 MG TAB PO PRN (10:00)
[2021-04-19] MEDS ORDERED: KETAMINE/STERILE WATER 50 MG/ML SYRINGE ONE (10:15)
[2021-04-19] MEDS ORDERED: WATER FOR IRRIG STERILE 2000 ML IR ONE (10:33)
[2021-04-19] MEDS ORDERED: WATER FOR IRRIG STERILE 1,000 ML BOTTLE IR ONE (10:33)
[2021-04-19] MEDS ORDERED: IOHEXOL 300 MG/ML 50ML IV ONE (10:33)
[2021-04-19] MEDS ORDERED: ONDANSETRON 4 MG/2 ML INJ ONE (11:36)
[2021-04-19] MEDS ORDERED: KETOROLAC 30 MG/1 ML INJ ONE (11:36)
[2021-04-19] MEDS ORDERED: diphenhydrAMINE 50 MG/ML VIAL ONE (11:36)
[2021-04-19] MEDS ORDERED: METOCLOPRAMIDE 10 MG/2 ML INJ ONE (11:36)
[2021-04-19] MEDS ORDERED: dexAMETHasone 20 MG/5 ML VIAL ONE (11:36)
--- NOTE | 2021-04-19 11:56 | Post Operative Note ---
Date of procedure: 04/19/21 Pre-op diagnosis: cysteine and ureteral stones Post-op diagnosis: same Findings: impacted Procedure: cysto ureteroscopy laser Anesthesia: GUILLEA Surgeon: VINOD GRIDER Estimated blood loss: none Pathology: none Condition: stable Disposition: PACU
--- NOTE | 2021-04-19 11:57 | Discharge Summary ---
Short Stay Discharge Plan Activity: other (no straining ) Weight Bearing Status: Full Weight Bearing Diet: low fat, low cholesterol Special Instructions: other (inc fluids ) Durable Medical Equipment Needed Upon Discharge: other (j stents ) Follow up with: PRIMARY CARE, [Primary Care Provider] - 7 Days VINOD GRIDER MD [Staff Physician] - 7 Days
--- NOTE | 2021-04-19 12:13 | Operative Report ---
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 POSTOPERATIVE DIAGNOSIS: Cystinuria and recurrent cystine stones with refusal initially to take Thiola. PROCEDURE PERFORMED: Cystoscopy, stent exchange, right ureteroscopy with flexible and then rigid laser of stone into at least 10 pieces and reinsertion of a smaller double-J. SURGEON: Mariano Gonsalez MD ANESTHESIA: General. FINDING: This is a woman with cystine stones, very difficult to see anything on x-ray. She now presents with a large stone in the lower ureter and one in the upper ureter. DESCRIPTION OF PROCEDURE: The patient was brought to the OR and placed on the operating table. Following induction of anesthesia, placed in lithotomy position, prepped and draped in usual sterile fashion. The stent was withdrawn and had some little bit of tightness around the stone. We placed a wire through the stent and then the stent was withdrawn. At this point, ureteroscopy with the flexible scope showed the stone started breaking, but it was engaged in the wall of the ureter. We could not get the right angle despite multiple trying and different irrigations and different methods. We used the axial sheath just to dilate it without the sheath and then still could not get the laser fiber on the stone. We then used the rigid fiber, which was able to free it off the wall and break it into many, many pieces and we were able to get up to the upper ureter. The patient tolerated the procedure well. All the stones were broken up well. No significant complications. A 6-Sudanese double J coiled in the ureter and the bladder and family was notified. She was brought to recovery room. She may need a second stage of this procedure or we may just take the stent out, but she will need some sort of treatment of the cystine stones. TID: [id number] RECEIPT: [id number] TREVOR/HERNANDEZ
[2021-04-19 12:25] VITALS: BP 117/80
[2021-04-19] MEDS ORDERED: PHENAZOPYRIDINE 200 MG TAB PO ONE (12:38)
[2021-04-19] MEDS ORDERED: PHENAZOPYRIDINE 200 MG TAB PO NR (12:39)
--- NOTE | 2021-04-19 16:24 | Post Anesthesia Evaluation ---
- Post Anesthesia Evaluation Patient Participated: Yes Airway Patent: Yes Stable Respiratory Function: Yes Nausea/Vomiting: No Temp > 96.8F: Yes Pain Manageable: Yes Adequeate Hydration: Yes Anesthesia Complications: No
--- NOTE | 2021-04-21 10:05 | Fluoroscopy Report ---
FL retrograde urography INDICATION / CLINICAL INFORMATION: RT URETERAL STONE. COMPARISON: None available. FINDINGS: Spot intraoperative images used for surgical guidance during right retrograde urography and JJ ureter al stent placement. Fluoroscopy time: 1 minute 4 seconds. Fluoroscopic images: 5. Signer Name: Kristopher Barnett MD Signed: 04/21/2021 10:01 AM Workstation Name: [id number]
--- NOTE | 2021-04-22 14:53 | History and Physical Report ---
ADMIT DATE: 04/19/2021 HISTORY OF PRESENT ILLNESS: The patient is a woman with recurrent stones. She is 25 years of age and she now presents for staging a cystoscopy, ureteroscopy and evaluation. All risks and complications were discussed. PAST MEDICAL HISTORY: History of stones, previous sepsis, pyonephrosis, cystinuria. REVIEW OF SYSTEMS: Intermittent pain. PHYSICAL EXAMINATION: GENERAL: She is awake, alert, in no distress. HEENT: Normocephalic, nontraumatic. CHEST: Clear. HEART: Regular rhythm. ABDOMEN: Soft. No localized tenderness. IMPRESSION: Recurrent stones for cystoscopy and ureteroscopy as needed. TID: [id number] RECEIPT: [id number] TREVOR/ELOY
== END 2021-04-19 08:25 | disposition home or self-care (01) ==
LOC: OR 08:24
PROVIDERS: ATTEND Urology
DX: R82.998 Other abnormal findings in urine (principal); N20.2 Calculus of kidney with calculus of ureter; E72.09 Other disorders of amino-acid transport; E66.9 Obesity, unspecified; F41.9 Anxiety disorder, unspecified; D64.9 Anemia, unspecified; Z98.890 Other specified postprocedural states; Z79.899 Other long term (current) drug therapy; Z88.8 Allergy status to other drugs, medicaments and biological substances; Z87.440 Personal history of urinary (tract) infections; Z68.29 Body mass index [BMI] 29.0-29.9, adult
CPT/HCPCS: 52356; 74420; 81025; A4217; C1726; C1758; C1769; C2617; J0690; J1100; J1200; J1885; J2250; J2405; J2704; J2765; J3490; J7120; Q9967; J3010